=== PATIENT | male | born 1975 | race Caucasian/White ===

== ENCOUNTER 2023-01-26 10:00 | Outpatient (CLI) | payer BC | END 2023-01-26 10:01 | disposition home or self-care (01) | LOC: CSHMRI 10:00 | PROVIDERS: ATTEND Specialist | DX: M51.16 Intervertebral disc disorders with radiculopathy, lumbar region (principal); M47.26 Other spondylosis with radiculopathy, lumbar region; M47.27 Other spondylosis with radiculopathy, lumbosacral region | CPT/HCPCS: 72148 ==